=== PATIENT | female | born 1995 | race Caucasian/White ===

== ENCOUNTER 2025-01-19 21:09 | Emergency (ER) | payer OTHER, SELFPAY ==
--- NOTE | ~2025-01-19 | CT_ITS ---
EXAMINATION: CT abdomen pelvis w con DATE: 01/20/2025 02:19 INDICATION: Abdominal pain. TECHNIQUE: Computed tomography (CT) of the abdomen and pelvis was performed with 100 mL Omnipaque 350 intravenous contrast. Automated exposure control and iterative reconstruction technique were employed. The dose-length product was 1071.68 mGy-cm. COMPARISON: None. FINDINGS: The visualized portions of the lung bases are clear without pneumonia or pleural effusion. The heart size is normal. No pericardial effusion. There is a small sliding hiatal hernia. There is a 12 mm mass in right hepatic lobe. The gallbladder, spleen, pancreas, adrenal glands, and kidneys are normal. There are no dilated loops of bowel. The appendix is not visualized. There are no pathologically enlarged lymph nodes. There is no free intraperitoneal fluid. There is mild thoracic and lumbar spondylosis. IMPRESSION: 1. 12 mm liver mass, which may be benign or less likely malignant. Abdomen MRI without and with contrast is recommended. I discussed this finding with Dr. Delgadillo. 2. Small sliding hiatal hernia. Reviewed, dictated and finalized at location E. RING ATTENDANT IMPRESSION: 1. 12 mm liver mass, which may be benign or less likely malignant. Abdomen MRI without and with contrast is recommended. I discussed this finding with Dr. Jami najera. 2. Small sliding hiatal hernia.
[2025-01-19 21:40] VITALS: BP 131/83; PULSE 90; RESP 14; TEMP 36.4; O2SAT 100
[2025-01-19 22:59] LABS: Hematocrit 38.0 % (37.0-47.0); Hemoglobin 12.9 g/dL (12.0-15.0); Immature Granulocyte Percent A 0.3 % (0-0.5); Lymphocytes Absolute Auto 2.39 K/mm3 (0.9-3.2); Mean Corpuscular HGB Conc 33.9 g/dl (32-36); Mean Corpuscular Hemoglobin 30.0 pg (26-34); Mean Corpuscular Volume 88.4 fl (80-100); Nucleated Red Blood Cells Absolute Auto 0.000 K/mm3 (0.0-0.012); Nucleated Red Blood Cells Perc 0.0 % (0.0-0.2); Platelet Count Result 293 k/mm3 (150-375); Red Blood Count 4.30 M/mm3 (4.2-5.4); White Blood Count 9.7 K/mm3 (4.5-10.0)
[2025-01-19 23:14] LABS: Alanine Aminotransferase 33 U/L (6-35); Albumin Level 4.4 g/dL (3.5-5.1); Alkaline Phosphatase 116 U/L (38-126); Anion Gap 7 mmol/L (4-12); Aspartate Amino Transferase 37 U/L (14-36); Bilirubin,Total 0.3 mg/dL (0.2-1.3); Blood Urea Nitrogen 12 mg/dL (7-17); Calcium 9.0 mg/dL (8.4-10.2); Carbon Dioxide 26 mmol/L (22-30); Chloride 102 mmol/L (98-107); Estimated Glomerular Filt Rate > 60; Glucose 93 mg/dL (65-110); Lipase 47 U/L (23-300); Potassium 3.9 mmol/L (3.4-5.0); Sodium 135 mmol/L (137-145); Total Protein 7.7 g/dL (6.3-8.2)
[2025-01-19 23:41] LABS: Add Urine Microscopic? YES; Appearance Urine Clear (Clear); Glucose Urine UA Negative (Negative); Leukocyte Esterase Ur Trace LEU/UL (Negative); Nitrate Urine Negative (Negative); Non Pathogenic Casts 0-2; Specific Grav Ur 1.011 (1.001-1.035)
[2025-01-20 00:43] LABS: Pregnancy On Board Control Positive
--- NOTE | 2025-01-20 00:49 | ED_ITS ---
HPI - Abdominal Pain General Chief Complaint: Abdominal Pain <Lulu Kendrick APRN - Last Filed: 01/20/25 03:56> Stated Complaint: abdominal pain <Lulu Kendrick APRN - Last Filed: 01/20/25 03:56> Time Seen by Provider: 01/20/25 00:28 <Lulu Kendrick APRN - Last Filed: 01/20/25 03:56> History of Present Illness HPI narrative: Patient is a 29-year-old female who presents to the ER abdominal pain for the past couple of weeks that worsened today. She reports she went to urgent care on Saturday where they prescribed her with omeprazole. Patient endorses intermittent diarrhea throughout the past couple of weeks. She reports the pain is worse when she is hunched over. Patient endorses a history of an appendectomy, hypothyroidism, anxiety and depression. She denies any recent fevers, urinary symptoms, acute back pain. Patient reports her last menstrual period started yesterday, January 19, 2025. <Lulu Kendrick APRN - Last Filed: 01/20/25 03:56> Related Data Allergies/Adverse Reactions: Allergies Allergy/AdvReac Type Severity Reaction Status Date / Time lidocaine Allergy Mild skin rash Verified 01/20/25 08:36 Sulfa (Sulfonamide Allergy Unknown Rash Verified 01/20/25 08:36 Antibiotics) <Lulu Kendrick APRN - Last Filed: 01/20/25 03:56> Review of Systems 2 Review of Systems: All systems reviewed & are unremarkable except as noted in HPI and below <Lulu Kendrick APRN - Last Filed: 01/20/25 03:56> FOR[facility]LY [facility] Social History Social History: Social History Alcohol intake: current <Lulu Kendrick APRN - Last Filed: 01/20/25 03:56> Exam 2 Narrative: GENERAL: Well appearing, obese, non-toxic, in no acute distress. HEAD: Normocephalic, atraumatic. NECK: Supple. No adenopathy, no masses. RESPIRATORY: Airway patent, respirations nonlabored. Clear to auscultation bilaterally, no rales, rhonchi, wheezing. CARDIOVASCULAR: Regular rate and rhythm without murmurs, rubs, or gallops. Peripheral pulses 2+ and equal bilaterally. ABDOMINAL: Soft, nontender, mildly distended, no hepatosplenomegaly. Normoactive BS. Negative Elizalde's sign. MUSCULOSKELETAL: Moves all extremities. Strength/ROM intact without gross deformities. SKIN: Warm, dry, normal color. No rashes. NEURO: A&O X3. Speech clear. Cranial nerves II-XII intact. No ataxic movements. PSYCHIATRIC: Appropriate mood and affect. Normal interaction. <Lulu Kendrick APRN - Last Filed: 01/20/25 03:56> Course Course Emergency Course: Patient signed out to me pending CT abdomen pelvis. There was a delay in obtaining the print out from [employer] which showed; No acute finding. 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 Patient's test at bedside at approximately 8:30 a.m.. She reports that her pain is somewhat improved although she still has some nausea, a sour stomach.She had received a GI cocktail although notes no lidocaine as she has the skin sensitivity to this. Will give a dose of Bentyl, phonating, and Zofran. 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 Discussed the CT liver mass finding and advised she follow up with PCP who can help arrange. She already has an appointment with her PCP in a week from today. Patient is otherwise stable for discharge. She has remained hemodynamically stable with vital signs within normal limits. ED return precautions given. <Tosha Delgadillo MD - Last Filed: 01/20/25 08:43> Vital Signs Vital signs: Vital Signs Temperature 97.6 F 01/19/25 21:40 Pulse Rate 90 01/19/25 21:40 Respiratory Rate 14 01/19/25 21:40 Blood Pressure 131/83 01/19/25 21:40 Pulse Oximetry 100 01/19/25 21:40 Oxygen Delivery Room Air 01/19/25 21:40 Temperature 97.6 F 01/19/25 21:40 Pulse Rate 78 01/20/25 07:31 Respiratory Rate 18 01/20/25 07:31 Blood Pressure 123/74 01/20/25 07:31 Pulse Oximetry 100 01/20/25 07:31 Oxygen Delivery Room Air 01/19/25 21:40 <Lulu Kendrick APRN - Last Filed: 01/20/25 03:56> Vital Signs Temperature 97.6 F 01/19/25 21:40 Pulse Rate 90 01/19/25 21:40 Respiratory Rate 14 01/19/25 21:40 Blood Pressure 131/83 01/19/25 21:40 Pulse Oximetry 100 01/19/25 21:40 Oxygen Delivery Room Air 01/19/25 21:40 Temperature 97.6 F 01/19/25 21:40 Pulse Rate 78 01/20/25 07:31 Respiratory Rate 18 01/20/25 07:31 Blood Pressure 123/74 01/20/25 07:31 Pulse Oximetry 100 01/20/25 07:31 Oxygen Delivery Room Air 01/19/25 21:40 <Tosha Delgadillo MD - Last Filed: 01/20/25 08:43> MDM - Abdominal Pain MDM Narrative Medical decision making narrative: Patient is a 29-year-old female who presents to the ER abdominal pain for the past couple of weeks that worsened today. She reports she went to urgent care on Saturday where they prescribed her with omeprazole. Patient endorses intermittent diarrhea throughout the past couple of weeks. She reports the pain is worse when she is hunched over. Patient endorses a history of an appendectomy, hypothyroidism, anxiety and depression. She denies any recent fevers, urinary symptoms, acute back pain. Patient reports her last menstrual period started yesterday, January 19, 2025. Labs Ordered: CBC, CMP, lipase, UA Imaging Ordered: CT abdomen pelvis with contrast Medications Ordered: GI cocktail Patient Education/Shared MDM: Patient endorses mild improvement after GI cocktail administration but reports my symptoms have been going on for 2 weeks and I still feel really bloated. Decision was made to proceed forward with a CT scan of pt's abdomen. [id number]-[id number] signed out to Dr. Joseph pending CT scan results. <Lulu Kendrick, LASHELL - Last Filed: 01/20/25 03:56> Differential Diagnosis Differential diagnosis: Likely abdominal pain, calculus of kidney, constipation, gastroenteritis, pancreatitis, small bowel obstruction and other (GERD) <Lulu Kendrick APRN - Last Filed: 01/20/25 03:56> Lab Data Attestation: I reviewed the patient's lab results. <Lulu Kendrick APRN - Last Filed: 01/20/25 03:56> Result diagrams: 01/19/25 22:53 01/19/25 22:53 <Lulu Kendrick APRN - Last Filed: 01/20/25 03:56> Labs: Lab Results 01/19/25 01/19/25 Range/Units 22:53 23:17 WBC 9.7 (4.5-10.0) K/mm3 RBC 4.30 (4.2-5.4) M/mm3 Hgb 12.9 (12.0-15.0) g/dL Hct 38.0 (37.0-47.0) % MCV 88.4 (80-100) fl MCH 30.0 (26-34) pg MCHC 33.9 (32-36) g/dl RDW 13.2 (11.5-14.5) % Plt Count 293 (150-375) k/mm3 MPV 9.0 (7.4-10.4) fl Immature Gran % (Auto) 0.3 (0-0.5) % Neut % (Auto) 66.1 (45.5-73.1) % Lymph % (Auto) 24.7 (18.3-44.2) % [place] % (Auto) 6.4 (2.6-8.5) % Eos % (Auto) 2.0 (0-4.4) % Baso % (Auto) 0.5 (0.2-1.2) % Lymph # (Auto) 2.39 (0.9-3.2) K/mm3 [place] # (Auto) 0.6 (0.1-0.6) K/mm3 Eos # (Auto) 0.2 (0-0.3) K/mm3 Baso # (Auto) 0.1 (0.0-0.1) K/mm3 Abs Immat Gran (auto) 0.03 (0.00-0.031) K/mm3 Absolute Neuts (auto) 6.4 (1.3-6.7) K/mm3 Absolute Nucleated RBC 0.000 (0.0-0.012) K/mm3 Nucleated RBC % 0.0 (0.0-0.2) % Sodium 135 L (137-145) mmol/L Potassium 3.9 (3.4-5.0) mmol/L Chloride 102 (98-107) mmol/L Carbon Dioxide 26 (22-30) mmol/L Anion Gap 7 (4-12) mmol/L BUN 12 (7-17) mg/dL Creatinine 0.78 (0.7-1.0) mg/dL Estim Creat Clear Calc Not Reportable Estimated GFR > 60 (59 - ) Glucose 93 (65-110) mg/dL Calcium 9.0 (8.4-10.2) mg/dL Total Bilirubin 0.3 (0.2-1.3) mg/dL AST 37 H (14-36) U/L ALT 33 (6-35) U/L Alkaline Phosphatase 116 (38-126) U/L Total Protein 7.7 (6.3-8.2) g/dL Albumin 4.4 (3.5-5.1) g/dL Lipase 47 (23-300) U/L Urine Color Yellow (Yellow) Urine Appearance Clear (Clear) Urine pH 6.0 (5.0-9.0) Ur Specific [place] 1.011 (1.001-1.035) Urine Protein Negative (Negative) mg/dL Urine Glucose (UA) Negative (Negative) mg/dL Urine Ketones Negative (Negative) mg/dL Ur Blood (Man) 2+ H (Negative) Urine Nitrate Negative (Negative) Urine Bilirubin Negative (Negative) Urine Urobilinogen 0.2 (<2.0) mg/dL Leukocyte Esterase Rfl Trace H (Negative) STELLA/UL Urine RBC 6-10 H (0-2) /hpf Urine WBC 0-5 (0-3) /hpf Ur Squamous Epith Cells Occasional (Few) /hpf Urine Bacteria Rare /hpf Urine Casts 0-2 Urine Test Negative <Lulu Kendrick, RAG WILLOW OPERATOR - Last Filed: 01/20/25 03:56> Lab Results 01/19/25 01/19/25 Range/Units 22:53 23:17 WBC 9.7 (4.5-10.0) K/mm3 RBC 4.30 (4.2-5.4) M/mm3 Hgb 12.9 (12.0-15.0) g/dL Hct 38.0 (37.0-47.0) % MCV 88.4 (80-100) fl MCH 30.0 (26-34) pg MCHC 33.9 (32-36) g/dl RDW 13.2 (11.5-14.5) % Plt Count 293 (150-375) k/mm3 MPV 9.0 (7.4-10.4) fl Immature Gran % (Auto) 0.3 (0-0.5) % Neut % (Auto) 66.1 (45.5-73.1) % Lymph % (Auto) 24.7 (18.3-44.2) % [place] % (Auto) 6.4 (2.6-8.5) % Eos % (Auto) 2.0 (0-4.4) % Baso % (Auto) 0.5 (0.2-1.2) % Lymph # (Auto) 2.39 (0.9-3.2) K/mm3 [place] # (Auto) 0.6 (0.1-0.6) K/mm3 Eos # (Auto) 0.2 (0-0.3) K/mm3 Baso # (Auto) 0.1 (0.0-0.1) K/mm3 Abs Immat Gran (auto) 0.03 (0.00-0.031) K/mm3 Absolute Neuts (auto) 6.4 (1.3-6.7) K/mm3 Absolute Nucleated RBC 0.000 (0.0-0.012) K/mm3 Nucleated RBC % 0.0 (0.0-0.2) % Sodium 135 L (137-145) mmol/L Potassium 3.9 (3.4-5.0) mmol/L Chloride 102 (98-107) mmol/L Carbon Dioxide 26 (22-30) mmol/L Anion Gap 7 (4-12) mmol/L BUN 12 (7-17) mg/dL Creatinine 0.78 (0.7-1.0) mg/dL Estim Creat Clear Calc Not Reportable Estimated GFR > 60 (59 - ) Glucose 93 (65-110) mg/dL Calcium 9.0 (8.4-10.2) mg/dL Total Bilirubin 0.3 (0.2-1.3) mg/dL AST 37 H (14-36) U/L ALT 33 (6-35) U/L Alkaline Phosphatase 116 (38-126) U/L Total Protein 7.7 (6.3-8.2) g/dL Albumin 4.4 (3.5-5.1) g/dL Lipase 47 (23-300) U/L Urine Color Yellow (Yellow) Urine Appearance Clear (Clear) Urine pH 6.0 (5.0-9.0) Ur Specific [place] 1.011 (1.001-1.035) Urine Protein Negative (Negative) mg/dL Urine Glucose (UA) Negative (Negative) mg/dL Urine Ketones Negative (Negative) mg/dL Ur Blood (Man) 2+ H (Negative) Urine Nitrate Negative (Negative) Urine Bilirubin Negative (Negative) Urine Urobilinogen 0.2 (<2.0) mg/dL Leukocyte Esterase Rfl Trace H (Negative) STELLA/UL Urine RBC 6-10 H (0-2) /hpf Urine WBC 0-5 (0-3) /hpf Ur Squamous Epith Cells Occasional (Few) /hpf Urine Bacteria Rare /hpf Urine Casts 0-2 Urine Test Negative <Tosha Delgadillo MD - Last Filed: 01/20/25 08:43> Imaging Data Radiologist's impression: ITS Impressions Abdomen/Pelvis CT 01/20/25 07:14 IMPRESSION: 1. 12 mm liver mass, which may be benign or less likely malignant. Abdomen MRI without and with contrast is recommended. I discussed this finding with Dr. Delgadillo. 2. Small sliding hiatal hernia. <Lulu Kendrick APRN - Last Filed: 01/20/25 03:56> ITS Impressions Abdomen/Pelvis CT 01/20/25 07:14 IMPRESSION: 1. 12 mm liver mass, which may be benign or less likely malignant. Abdomen MRI without and with contrast is recommended. I discussed this finding with Dr. Delgadillo. 2. Small sliding hiatal hernia. <Tosha Delgadillo MD - Last Filed: 01/20/25 08:43> Discharge Plan Discharge Clinical Impression: Gastritis, Gastric reflux, Epigastric abdominal pain, Nausea, Liver mass <Lulu Kendrick APRN - Last Filed: 01/20/25 03:56> Patient Disposition: Home <Lulu Kendrick APRN - Last Filed: 01/20/25 03:56> Condition: Stable <Lulu eKndrick APRN - Last Filed: 01/20/25 03:56> Instructions: Antibiotic Form, Gastritis (ED), Diet for Stomach Ulcers and Gastritis (ED), Abdominal Pain (ED) <Lulu Kendrick APRN - Last Filed: 01/20/25 03:56> Additional Instructions: Please return to the ER with any worsening symptoms. Follow-up with primary care provider as soon as possible for further evaluation and treatment. Take all medications as prescribed, including regularly scheduled medications. 12 mm liver mass, which may be benign or less likely malignant. Abdomen MRI without and with contrast is recommended. Your PCP can help arrange this. Discuss with them at your upcoming appointment in the week. Return to the Emergency Department immediately if the pain worsens, develops fever, persistent and uncontrolled vomiting, or for any new symptoms or concerns. <Lulu Kendrick APRN - Last Filed: 01/20/25 03:56> Patient Language: [place] Zealander <Lulu Kendrick APRN - Last Filed: 01/20/25 03:56> Prescriptions: New famotidine [Pepcid AC Maximum Strength] 20 mg tablet 20 mg PO BID Qty: 60 0RF <Lulu Kendrick APRN - Last Filed: 01/20/25 03:56> Follow-up/Referrals: Nilsa,ACE Mcclure [Non-Staff, Unknown] UNKNOWN,DOCTOR [Primary Care Provider] <Lulu Kendrick APRN - Last Filed: 01/20/25 03:56> Stand Alone Forms: Work/School Release IP <Lulu Kendrick APRN - Last Filed: 01/20/25 03:56> Time of Disposition: 08:42 <Lulu Kendrick APRN - Last Filed: 01/20/25 03:56> 08:42 <Tosha Delgadillo MD - Last Filed: 01/20/25 08:43>
[2025-01-20] MEDS: BELLADONNA ALK/PHENOB ELIX 10 ML, MAG HYDROX/ALUMINUM HYD/SIMETH 30 ML, LIDOCAINE 2% VI... PO (00:58)
[2025-01-20] MEDS: LEVOTHYROXINE SODIUM 100 MCG TABLET PO (07:30)
[2025-01-20 07:31] VITALS: BP 123/74; PULSE 78; RESP 18; O2SAT 100
[2025-01-20] MEDS: ONDANSETRON INJ 4 MG/2 ML VIAL IV PUSH (08:42)
[2025-01-20] MEDS: FAMOTIDINE 20 MG/2 ML VIAL IV PUSH (08:42)
[2025-01-20] MEDS: DICYCLOMINE HCL 10 MG CAPSULE 20 MG PO (08:42)
[2025-01-20 09:16] VITALS: BP 117/67; PULSE 68; RESP 18; O2SAT 100
== END 2025-01-20 09:16 | disposition home or self-care (01) ==
PROVIDERS: Emergency Medicine; Registered Nurse; Emergency Provider Student in an Organized Health Care Education/Training Program
DX: K29.70 Gastritis, unspecified, without bleeding (principal); K21.9 Gastro-esophageal reflux disease without esophagitis; R16.0 Hepatomegaly, not elsewhere classified; E03.9 Hypothyroidism, unspecified; F41.9 Anxiety disorder, unspecified; F32.A Depression, unspecified; K44.9 Diaphragmatic hernia without obstruction or gangrene
CPT/HCPCS: 36415; 74177; 80053; 81001; 81025; 83690; 85025; 96374; 96375; 99284; A9270; J2405; Q9967